=== PATIENT | male | born 1995 | race African-American/Black ===

== ENCOUNTER 2019-01-04 03:16 | Emergency (ER) | payer MEDICAID ==
[~2019-01-04] VITALS: Ht 175.3 cm; Wt 68.0 kg
[2019-01-04] MEDS ORDERED: SODIUM CHLORIDE 0.9% 1,000 ML IV ONE (03:39)
[2019-01-04] MEDS ORDERED: LEVETIRACETAM 500MG PREMIX 100 ML IV ONE (03:45)
[2019-01-04 05:32] VITALS: BP 104/58
== END 2019-01-04 05:33 | disposition home or self-care (01) ==
LOC: EDUNIT# 03:16 → ER 03:16
DX: G40.909 Epilepsy, unspecified, not intractable, without status epilepticus (principal); Z91.14 Patient's other noncompliance with medication regimen
CPT/HCPCS: 96365; 99283; J1953; J7030